=== PATIENT | female | born 1990 | race Two or more races ===

== ENCOUNTER 2022-05-31 12:25 | Emergency (ER) | payer MEDICAID, SELFPAY ==
[2022-05-31 12:36] VITALS: BP 107/68; PULSE 96; RESP 16; TEMP 36.6; O2SAT 98; BMI 30.4
--- NOTE | 2022-05-31 12:55 | ED_ITS ---
HPI - Extremity Injury (Lower) General: Chief Complaint: Extremity Problem,Nontraumatic Stated Complaint: Left foot pain Time Seen by Provider: 05/31/22 12:44 Source: patient Mode of arrival: wheelchair Limitations: no limitations History of Present Illness: Patient is a 31-year-old female who presents to ED today for evaluation of a left foot injury. Patient tells me yesterday she tripped and rolled the foot. No fall. States she is having pain to the top of her foot and has noticed some bruising. States she has not been able to bear weight on the foot since the injury. complaint: foot injury Onset (ago): day(s) (yesterday) Injury: Left: foot Place: home Severity: moderate Relieving factors: immobilization Exacerbating factors: weight bearing, movement and palpation Context: other (twisting) Associated symptoms: Reports inability to bear weight Other symptoms: none Review of Systems Musc: Reports: extremity pain (L foot); Denies: extremity swelling, joint pain, joint swelling, joint redness or joint warmth Neuro: Denies: numbness in extremities or sensory changes [facility] ED Female Reproductive History: Date of last menstrual period: 04/30/22 Physical Exam Const: COMMON NORMALS: no acute distress, no limitations and alert Extremity: COMMON NORMALS: no joint enlargement, no clubbing, cyanosis or edema, no calf tenderness and no pedal edema GENERAL: Yes normal exam except as noted LEFT LOWER EXTREMITY: Yes foot & digits (pain and mild ecchymosis noted to L dorsal foot) Left foot and digits: Yes neurovascular exam (normal) and Yes other (no bony abnormalites noted) Neuro: COMMON NORMALS: moves all extremities, no focal motor deficits and no sensory deficits noted SENSORIUM/ORIENTATION: Yes alert Course Vital Signs: Vital signs: Vital Signs Temperature 97.8 F 05/31/22 12:36 Pulse Rate 96 05/31/22 12:36 Respiratory Rate 16 05/31/22 12:36 Blood Pressure 107/68 05/31/22 12:36 Pulse Oximetry 98 05/31/22 12:36 MDM - Extremity Injury (Lower) Medical Decision Making XR negative. Patient states she has JOSEPH wrap and crutches at home she can use as needed. Recommend weight bearing as tolerated. RICE treatment discussed. Follow-up with PCP in 1 week if symptoms do not seem to be improving. Lab Data Radiology Impressions Foot X-Ray 05/31/22 13:00 IMPRESSION: 1. Negative left foot. Discharge Plan Discharge Patient Disposition: Home Clinical Impression: Sprain of left foot Qualifiers: Encounter type: initial encounter Qualified Code(s): S93.602A - Unspecified sprain of left foot, initial encounter Condition: Stable Discharge Orders: Discharge ED (Routine); Ordered 05/31/22 Ordered By: Julee Huang Referrals: Adryan Buckley FNP [Primary Care Provider] - Patient Instructions: Foot Sprain (ED), RICE Therapy Coding Level of Care Code ED Circuit Board Drafter for Stephen Dumont
--- NOTE | 2022-05-31 13:00 | XR_ITS ---
WS: [id number] Exam: XR foot LT min 3V* [id number] Date/Time of Exam: 05/31/2022 1:03 PM Reason For Exam: trauma/injury/pain No acute fracture or dislocation. No radiopaque soft tissue foreign bodies are seen. XR/XR foot LT min 3V* [id number] IMPRESSION: 1. Negative left foot.
== END 2022-05-31 14:09 | disposition home or self-care (01) ==
PROVIDERS: Emergency Provider Physician Assistant; PCP Nurse Practitioner Family
DX: S93.602A Unspecified sprain of left foot, initial encounter (principal); X50.1XXA Overexertion from prolonged static or awkward postures, initial encounter
CPT/HCPCS: 73630; 99283

== ENCOUNTER 2022-09-10 22:30 | Emergency (ER) | payer MEDICAID, SELFPAY ==
[2022-09-10 22:33] VITALS: BP 123/70; PULSE 101; RESP 23; TEMP 36.6; O2SAT 92; BMI 24.4
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
[2022-09-10 22:50] VITALS: BP 125/75; PULSE 125; RESP 20; O2SAT 93
[2022-09-10 22:54] LABS: Basophils % 0.3 %; Eosinophils # 0.2 10^3/uL (0.0-0.8); Eosinophils % 1.6 %; Hematocrit 43.1 % (37.0-47.0); Hemoglobin 13.7 g/dL (11.5-15.3); Lymphocytes # 3.1 10^3/uL (0.8-4.8); Lymphocytes % 23.9 %; Mean Corpuscular HGB Conc 31.8 g/dL (30.0-36.0); Mean Corpuscular Hemoglobin 30.2 pg (28.0-34.0); Mean Corpuscular Volume 95.1 fl (81-99); Mean Platelet Volume 10.2 fL (7.4-10.4); Monocytes # 0.8 10^3/uL (0.2-0.9); Monocytes % 6.2 %; Neutrophils # 8.67 10^3/uL (1.8-7.7); Neutrophils % 67.6 %; Nucleated Red Blood Cells % 0 %; Platelet Count 307 10^3/cmm (130-400); Red Blood Count 4.53 10^6/uL (4.1-5.3); Red Cell Distribution Width 13.5 % (12.1-15.1); White Blood Count 12.8 10^3/uL (4.0-10.0)
[2022-09-10] MEDS: morphine 4 mg/mL SDV 1 mL IVP (22:54)
[2022-09-10] MEDS: ondansetron 2 mg/ML SDV 2 mL 4 MG IVP (22:54)
[2022-09-10 23:00] VITALS: BP 120/69; PULSE 88; RESP 19; O2SAT 93
[2022-09-10 23:14] LABS: Blood Urea Nitrogen 14 mg/dL (6-20); Calcium 8.7 mg/dL (8.5-10.5); Carbon Dioxide 25 mmol/L (22-29); Chloride 111 mmol/L (98-107); Glomerular Filtration Rate 144.9 mL/min (90-130); Glucose 101 mg/dL (65-115); Osmolality Calculated 303 mOsm/kg (285-295); Sodium 146 mmol/L (136-145)
[2022-09-10 23:15] VITALS: BP 123/71; PULSE 87; RESP 14; O2SAT 95
[2022-09-10 23:22] LABS: Anion Gap 13.3 (5-19); Potassium 3.3 mmol/L (3.5-5.1)
[2022-09-10 23:23] LABS: HCG, Serum Qual Negative (Negative)
[2022-09-10 23:30] VITALS: BP 114/70; PULSE 92; RESP 18; O2SAT 96
[2022-09-10] MEDS: iohexol 350 mg/mL 500 mL Btl (per mL) IV (23:42)
[2022-09-11 00:15] VITALS: BP 116/68; PULSE 98; RESP 20; O2SAT 92
== END 2022-09-11 01:02 | disposition home or self-care (01) ==
PROVIDERS: Emergency Provider Emergency Medicine; PCP Nurse Practitioner Family
DX: S01.81XA Laceration without foreign body of other part of head, initial encounter (principal); S42.132A Displaced fracture of coracoid process, left shoulder, initial encounter for closed fracture; V89.2XXA Person injured in unspecified motor-vehicle accident, traffic, initial encounter
CPT/HCPCS: 12013; 70450; 71260; 72125; 73130; 73562; 74177; 80048; 84703; 85025; 96374; 96375; 99285; J2270; J2405; Q9967

== ENCOUNTER 2022-09-12 12:25 | Emergency (ER) | payer MEDICAID, SELFPAY ==
[2022-09-12 12:30] VITALS: BP 110/74; PULSE 77; RESP 16; TEMP 36.6; O2SAT 98; BMI 27.8
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
[2022-09-12] MEDS: morphine 4 mg/mL SDV 1 mL IVP (13:13)
[2022-09-12] MEDS: acetaminophen 500 mg Tablet 1000 MG PO (13:17)
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
[2022-09-12 15:09] LABS: Add Urine Microscopic? YES; Amorphous Sediment Urine 1+ /hpf; Bacteria Urine TRACE /hpf; Bilirubin Urine Neg (Negative); Blood Urine Neg (Negative); Glucose Urine UA Norm (Normal); Ketones Urine Negative (Negative); Leukocyte Esterase Urine Trace (Negative); Nitrate Urine Negative (Negative); Protein Urine Neg (Negative); Specific Gravity, Urine 1.015 (1.005-1.030); Squamous Epithelial Cell Urine 0-4 /hpf (0-5); Urine Appearance Cloudy (CLEAR); Urine Color Yellow (Yellow); Urobilinogen Urine Norm (Negative); WBC Urine 0-4 /hpf (0-5); pH Urine 8 (5-7)
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
[2022-09-12 16:15] VITALS: BP 123/82; PULSE 89; RESP 16; O2SAT 98
[2022-09-12] MEDS: iohexol 350 mg/mL 500 mL Btl (per mL) IV (16:30)
[2022-09-12 17:33] VITALS: RESP 16
[2022-09-12] MEDS: oxyCODONE 5 mg IR Tab/Cap PO (17:33)
[2022-09-12] MEDS: oxyCODONE 5 mg IR Tab/Cap 15 MG PO (17:34)
[2022-09-12 17:38] VITALS: BP 119/73; PULSE 87; RESP 16; O2SAT 98
== END 2022-09-12 17:39 | disposition home or self-care (01) ==
PROVIDERS: Emergency Provider Emergency Medicine; PCP Family Medicine
DX: R10.9 Unspecified abdominal pain (principal)
CPT/HCPCS: 71045; 74177; 76770; 81001; 96374; 99285; J2270; Q9967

== ENCOUNTER → 2022-09-21 15:33 | Outpatient (BNVA) | payer MEDICAID, SELFPAY | PROVIDERS: PCP Family Medicine; Visit Provider Physician Assistant | DX: M54.2 Cervicalgia (principal) | CPT/HCPCS: 72050; 73030 ==

== ENCOUNTER 2022-11-10 14:27 | Outpatient (CLI) | payer MEDICAID, SELFPAY ==
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
== END 2022-11-10 14:28 | disposition home or self-care (01) ==
LOC: RAD 14:27
PROVIDERS: PCP Family Medicine; Visit Provider Physician Assistant
DX: M25.512 Pain in left shoulder (principal); S43.432A Superior glenoid labrum lesion of left shoulder, initial encounter; X58.XXXA Exposure to other specified factors, initial encounter
CPT/HCPCS: 73221

== ENCOUNTER 2022-11-30 15:24 | Outpatient (CLI) | payer MEDICAID, SELFPAY ==
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
== END 2022-11-30 15:25 | disposition home or self-care (01) ==
LOC: RAD 15:27
PROVIDERS: PCP Family Medicine; Visit Provider Physician Assistant
DX: S13.4XXA Sprain of ligaments of cervical spine, initial encounter (principal); X58.XXXA Exposure to other specified factors, initial encounter; M50.222 Other cervical disc displacement at C5-C6 level; M50.223 Other cervical disc displacement at C6-C7 level
CPT/HCPCS: 72141